=== PATIENT | female | born 2000 | race Caucasian/White ===

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

== ENCOUNTER → 2019-04-26 | Outpatient (CLI) | payer BC ==
[~2019-04-26] MED LIST: DULO30CA9 PO; EFFE37.5 PO; YAZ1TAB PO
--- NOTE | 2019-04-26 16:37 | REP ---
MRI lumbar spine without contrast: History: Degenerative disc disease. Rule out disc herniation. Comparison is made with images from CT study abdomen obtained May 28, 2018. Technique: Sagittal and axial T1 and T2-weighted scans are acquired in the usual fashion with and without fat saturation. Sequences include spin echo, turbo spin-echo, and STIR imaging sequences. MRI findings: There is straightening of the normal lumbar lordosis. Conus medullaris is normal in position and appearance at L1. No extra vertebral abnormality is appreciated. Axial and sagittal images at L1-2 and L2-3 and a show no abnormality. L3-4 there is minimal diffuse disc bulging. No neural foraminal narrowing or central canal stenosis is seen. No disc protrusion is seen. At the L4-5 level there is degenerative narrowing of the disc. There is diffuse moderate disc bulging effacing the ventral subarachnoid space and contributing to mild central canal stenosis. Midline AP dimension of the thecal sac at this level is 8 mm. There is mild bilateral foraminal narrowing due to facet hypertrophy and disc bulging. There is no evidence of spondylolysis or spondylolisthesis. At the L5-S1, there is minimal diffuse disc bulging. No spinal stenosis or foraminal narrowing is seen. Impression: Degenerative disc changes at L4-5 with diffuse moderate disc bulging, mild central canal stenosis, and bilateral foraminal narrowing. Electronically Signed by Dev Otero MD 04/26/2019 06:48 P
== END ==
LOC: M RAD 13:26
PROVIDERS: ATTEND Physician Assistant
DX: M51.36 Other intervertebral disc degeneration, lumbar region (principal)

== ENCOUNTER → 2020-10-19 | Outpatient (CLI) | payer SELFPAY | LOC: M LABSMTC 10:35 | PROVIDERS: ATTEND Pediatrics | DX: Z20.822 Contact with and (suspected) exposure to COVID-19 (principal) ==

== ENCOUNTER → 2020-10-30 | Outpatient (REF) | payer BC ==
[2020-10-30 19:35] LABS: CHLAMYDIA DNA AMPLIFICATION NEGATIVE (NEGATIVE); GC DNA AMPLIFICATION NEGATIVE (NEGATIVE)
== END ==
LOC: M SFHCPLAZ 16:48
PROVIDERS: ATTEND Obstetrics & Gynecology
DX: Z11.3 Encounter for screening for infections with a predominantly sexual mode of transmission (principal)

== ENCOUNTER 2021-02-12 21:06 | Emergency (ER) | payer BC ==
[~2021-02-12] VITALS: Ht 170.2 cm; Wt 91.7 kg
[2021-02-12] MEDS ORDERED: TOPA100T12 PO (21:18)
[2021-02-12] MEDS ORDERED: SUMA50TA2 PO (21:18)
[2021-02-12] MEDS ORDERED: CYMB1CAP5 PO (21:18)
[2021-02-12] MEDS ORDERED: NS 1,000 ML IV ONE (22:30)
[2021-02-12 22:47] LABS: BASO # 0.1 10^3/uL (0.0-0.2); BASO % 0.4 % (0.0-1.0); EOS # 0.1 10^3/uL (0.0-0.5); EOS % 0.4 % (0.0-3.0); HEMATOCRIT 40.1 % (36.0-47.0); HEMOGLOBIN 13.2 g/dl (12.0-15.5); LYMPH # 4.1 10^3/uL (1.5-5.0); LYMPH % 30.7 % (24.0-44.0); MEAN CORPUSCULAR HEMOGLOBIN 28.7 pg (27.0-33.0); MEAN CORPUSCULAR HGB CONC 32.9 g/dl (32.0-36.5); MEAN CORPUSCULAR VOLUME 87.2 fl (80.0-96.0); MONO # 0.9 10^3/uL (0.0-0.8); MONO % 6.4 % (2.0-8.0); NEUTROPHILS # 8.3 10^3/uL (1.5-8.5); NEUTROPHILS % 61.8 % (36.0-66.0); PLATELET COUNT, AUTOMATED 316 10^3/uL (150-450); WHITE BLOOD COUNT 13.4 10^3/uL (4.0-10.0)
[2021-02-12 23:17] LABS: HCG, SERUM QUALITATIVE NEGATIVE (NEGATIVE)
[2021-02-12 23:18] LABS: BLOOD UREA NITROGEN 15 MG/DL (7-18); CARBON DIOXIDE LEVEL 26 MEQ/L (21-32); CHLORIDE LEVEL 107 MEQ/L (98-107); CREATININE FOR GFR 0.72 MG/DL (0.55-1.30); GLOMERULAR FILTRATION RATE > 60.0 (>60); GLUCOSE, FASTING 80 MG/DL (70-100); POTASSIUM SERUM 3.8 MEQ/L (3.5-5.1); SODIUM LEVEL 140 MEQ/L (136-145)
[2021-02-12 23:19] LABS: ALBUMIN 3.8 GM/DL (3.2-5.2); ALT/SGPT 23 U/L (12-78); BILIRUBIN,DIRECT < 0.1 MG/DL (0.0-0.2); BILIRUBIN,TOTAL 0.5 MG/DL (0.2-1.0); LIPASE 101 U/L (73-393)
[2021-02-12] MEDS ORDERED: ISOVUE-370 76% 100ML VIAL As Ordered ONE (23:41)
--- NOTE | 2021-02-13 00:30 | REPVR ---
PROCEDURE INFORMATION: Exam: CT Abdomen And Pelvis With Contrast Exam date and time: 02/12/2021 10:29 PM Age: 20 years old Clinical indication: Abdominal pain; Generalized; Additional info: Ruq/suprapubic pain TECHNIQUE: Imaging protocol: Computed tomography of the abdomen and pelvis with contrast. Axial, coronal and sagittal reformatted images were created and reviewed. Radiation optimization: All CT scans at this facility use at least one of these dose optimization techniques: automated exposure control; mA and/or kV adjustment per patient size (includes targeted exams where dose is matched to clinical indication); or iterative reconstruction. Contrast material: ISO; Contrast volume: 100 ml; Contrast route: INTRAVENOUS (IV); COMPARISON: CT ABD/PEL W/IV CONTRAST ONLY 05/28/2018 8:35 PM FINDINGS: Liver: Unremarkable. Gallbladder and bile ducts: No radiodense gallstones. No biliary ductal dilatation. Pancreas: Unremarkable. Spleen: Coarse calcified splenic granulomata. Adrenal glands: Normal. No mass. Kidneys and ureters: No mass. No radiodense calculi. No hydronephrosis. Stomach and bowel: No bowel wall thickening. No obstruction. No pneumatosis. Appendix: Normal. Intraperitoneal space: No free fluid. No organized fluid collection. No free air. Vasculature: Unremarkable. No aneurysm. Lymph nodes: No pathologically enlarged lymph nodes. Urinary bladder: Unremarkable as visualized. Reproductive: Unremarkable. Bones/joints: No acute osseous abnormality. Mild degenerative changes. Soft tissues: Unremarkable. IMPRESSION: 1. No CT evidence of acute intra-abdominal or pelvic pathology. 2. Additional findings, as above. Electronically signed by: Charles Null On 02/13/2021 00:29:43 AM
[2021-02-13] MEDS ORDERED: KETO10TAB PO (00:44)
[2021-02-13] MEDS ORDERED: KETOROLAC 30 MG/ML 1ML VIAL IV ONE (00:45)
[2021-02-13 01:02] VITALS: BP 123/65
== END 2021-02-13 01:07 | disposition home or self-care (01) ==
LOC: M ED 21:06
DX: R10.9 Unspecified abdominal pain (principal); Z88.8 Allergy status to other drugs, medicaments and biological substances
CPT/HCPCS: 74177; 80048; 80076; 81001; 83690; 84703; 85025; 96360; 96361; 99284; J1885; Q9967

== ENCOUNTER → 2023-04-19 | Outpatient (REF) ==
[~2023-04-19] MED LIST changes: +CYMB1CAP5 PO; +KETO10TAB PO; +SUMA50TA2 PO; +TOPA100T12 PO
== END ==
LOC: M EMP 08:04
PROVIDERS: ATTEND Family Medicine
DX: Z11.52 Encounter for screening for COVID-19 (principal)

== ENCOUNTER 2023-08-12 10:00 | Emergency (ER) | payer BC ==
[~2023-08-12] VITALS: Ht 167.6 cm; Wt 104.0 kg
[2023-08-12 10:01] VITALS: BP 139/75; TEMP 96.9; O2SAT 99
[2023-08-12] MEDS ORDERED: LEXA5TAB13 (10:07)
[2023-08-12 10:37] LABS: URINE PREG TEST NEGATIVE (NEGATIVE)
[2023-08-12 11:53] LABS: BASO % 0.4 % (0.0-1.0); EOS # 0.1 10^3/uL (0.0-0.5); EOS % 1.3 % (0.0-3.0); HEMATOCRIT 39.8 % (36.0-47.0); HEMOGLOBIN 13.2 g/dl (12.0-15.5); LYMPH # 2.2 10^3/uL (1.5-5.0); LYMPH % 31.5 % (24.0-44.0); MEAN CORPUSCULAR HEMOGLOBIN 29.7 pg (27.0-33.0); MEAN CORPUSCULAR HGB CONC 33.2 g/dl (32.0-36.5); MEAN CORPUSCULAR VOLUME 89.4 fl (80.0-96.0); MONO # 0.5 10^3/uL (0.0-0.8); MONO % 7.1 % (2.0-8.0); NEUTROPHILS # 4.2 10^3/uL (1.5-8.5); NEUTROPHILS % 59.4 % (36.0-66.0); PLATELET COUNT, AUTOMATED 271 10^3/uL (150-450); RED BLOOD COUNT 4.45 10^6/uL (4.00-5.40)
[2023-08-12 12:19] LABS: ALBUMIN 3.5 G/DL (3.2-5.2); BILIRUBIN,DIRECT 0.2 MG/DL (<0.4); BILIRUBIN,TOTAL 0.6 MG/DL (0.3-1.2); TOTAL PROTEIN 6.1 G/DL (5.7-8.2)
[2023-08-12] MEDS ORDERED: IBUPROFEN 600MG TAB PO ONE (12:30)
== END 2023-08-12 12:42 | disposition home or self-care (01) ==
LOC: M ED 10:00
DX: R10.9 Unspecified abdominal pain (principal); K59.00 Constipation, unspecified; Z88.9 Allergy status to unspecified drugs, medicaments and biological substances; Z79.899 Other long term (current) drug therapy

== ENCOUNTER → 2023-08-17 | Outpatient (REF) | payer BC ==
[~2023-08-17] MED LIST changes: +LEXA5TAB13
[2023-08-18 13:35] LABS: CHLAMYDIA DNA AMPLIFICATION NEGATIVE (NEGATIVE); GC DNA AMPLIFICATION NEGATIVE (NEGATIVE)
== END ==
LOC: M LAB REF 09:52
PROVIDERS: ATTEND Physician Assistant
DX: Z11.3 Encounter for screening for infections with a predominantly sexual mode of transmission (principal)

== ENCOUNTER → 2023-08-18 | Outpatient (CLI) | payer BC ==
[2023-08-18 15:16] LABS: HIV 1&2 SCREEN NEGATIVE (NEGATIVE)
== END ==
LOC: M LAB 13:54
PROVIDERS: ATTEND Physician Assistant
DX: Z11.4 Encounter for screening for human immunodeficiency virus [HIV] (principal); Z11.3 Encounter for screening for infections with a predominantly sexual mode of transmission

== ENCOUNTER → 2023-11-02 | Outpatient (REF) | payer BC ==
[~2023-11-02] MED LIST changes: -EFFE37.5 PO; +EFFE37.52 PO
== END ==
LOC: M LAB REF 20:53
PROVIDERS: ATTEND Nurse Practitioner Family
DX: R30.0 Dysuria (principal); Z11.3 Encounter for screening for infections with a predominantly sexual mode of transmission

== ENCOUNTER 2023-11-29 08:40 | Emergency (ER) | payer BC ==
[~2023-11-29] VITALS: Ht 167.6 cm; Wt 101.1 kg
[2023-11-29] MEDS ORDERED: SENN1TAB41 PO (08:49)
[2023-11-29 11:34] LABS: RSV AMPLIFICATION NEGATIVE (NEGATIVE)
[2023-11-29] MEDS ORDERED: BENZ200C70 PO (11:48)
[2023-11-29] MEDS ORDERED: FLON1SPR NARES (11:56)
[2023-11-29] MEDS ORDERED: BENZ1LOZ9 PO (11:56)
[2023-11-29 12:00] VITALS: BP 144/63; TEMP 97.2; O2SAT 97
== END 2023-11-29 11:58 | disposition home or self-care (01) ==
LOC: M ED 08:40
DX: J21.9 Acute bronchiolitis, unspecified (principal); Q07.00 Arnold-Chiari syndrome without spina bifida or hydrocephalus; Z88.8 Allergy status to other drugs, medicaments and biological substances; Z79.899 Other long term (current) drug therapy

== ENCOUNTER → 2024-04-28 | Outpatient (REF) | payer BC ==
[~2024-04-28] MED LIST changes: +BENZ1LOZ9 PO; +BENZ200C70 PO; +FLON1SPR NARES; +SENN1TAB85 PO
== END ==
LOC: M LAB REF 15:15
PROVIDERS: ATTEND Surgery
DX: L72.3 Sebaceous cyst (principal)